=== PATIENT | female | born 1990 | race Caucasian/White ===

== ENCOUNTER → 2018-05-10 | Outpatient (CLI) | payer OTHER, BC | LOC: M RAD 12:33 | DX: Z36.89 Encounter for other specified antenatal screening (principal); Z3A.21 21 weeks gestation of pregnancy | CPT/HCPCS: 76811 ==

== ENCOUNTER → 2018-06-15 | Outpatient (REF) | payer BC ==
[2018-06-15 15:43] LABS: URINE TOTAL PROTEIN 14.8 MG/DL (0-12)
[2018-06-15 19:53] LABS: TOTAL VOLUME, URINE 1000 ML
== END ==
LOC: M LAB REF 12:49
DX: Z36.89 Encounter for other specified antenatal screening (principal)
CPT/HCPCS: 81050

== ENCOUNTER → 2018-06-15 | Outpatient (CLI) | payer OTHER, BC ==
[2018-06-15 13:06] LABS: HEMATOCRIT 36.4 % (36.0-47.0); HEMOGLOBIN 12.4 g/dl (12.0-15.5); MEAN CORPUSCULAR HEMOGLOBIN 31.4 pg (27.0-33.0); MEAN CORPUSCULAR HGB CONC 34.1 g/dl (32.0-36.5); MEAN CORPUSCULAR VOLUME 92.2 fl (80.0-96.0); PLATELET COUNT, AUTOMATED 193 10^3/uL (150-450); RED BLOOD COUNT 3.95 10^6/uL (4.00-5.40); RED CELL DISTRIBUTION WIDTH 12.4 % (11.5-14.5); WHITE BLOOD COUNT 9.8 10^3/uL (4.0-10.0)
[2018-06-15 14:25] LABS: GLUCOSE CHALLENGE TEST 1 HOUR 78 MG/DL (LESS THAN 140)
== END ==
LOC: M LAB 12:09
DX: Z36.89 Encounter for other specified antenatal screening (principal)
CPT/HCPCS: 82950

== ENCOUNTER → 2018-08-26 | Outpatient (REF) | payer BC | LOC: M LAB REF 13:37 | PROVIDERS: ATTEND Obstetrics & Gynecology | DX: Z34.83 Encounter for supervision of other normal pregnancy, third trimester (principal); Z3A.00 Weeks of gestation of pregnancy not specified ==

== ENCOUNTER 2018-09-15 18:04 | Inpatient (IN) | payer OTHER ==
[2018-09-15] VITALS (21 sets, daily range): BP systolic 96–138; BP diastolic 53–82
[~2018-09-15] VITALS: Ht 160 cm; Wt 92.0 kg
[2018-09-15] MEDS ORDERED: LR 1,000 ML IV SCH (18:15)
[2018-09-15] MEDS ORDERED: LACTATED RINGER'S 1000 ML IV STA (18:15)
[2018-09-15] MEDS ORDERED: ANTA1CHW4 PO (18:29)
[2018-09-15] MEDS ORDERED: PRENTAB55 PO (18:29)
[2018-09-15 19:16] LABS: HEMATOCRIT 38.6 % (36.0-47.0); MEAN CORPUSCULAR HEMOGLOBIN 30.4 pg (27.0-33.0); MEAN CORPUSCULAR HGB CONC 33.7 g/dl (32.0-36.5); MEAN CORPUSCULAR VOLUME 90.4 fl (80.0-96.0); PLATELET COUNT, AUTOMATED 151 10^3/uL (150-450); RED BLOOD COUNT 4.27 10^6/uL (4.00-5.40); WHITE BLOOD COUNT 9.9 10^3/uL (4.0-10.0)
[2018-09-15] MEDS ORDERED: OXYTOCIN DRIP 30 UNITS in APPROPRIATE DILUENT 1 EA IV SCH ×2 (19:45→22:47)
[2018-09-15] MEDS ORDERED: FENTANYL 2MCG/ML ROPIVACAINE 0.2% IN 0.9% NACL 100ML IVBAG As Ordered ONE (21:06)
[2018-09-15] MEDS ORDERED: ePHEDrine SULFATE 25 MG/5 ML(5MG/ML) SYRINGE IV PRN (22:00)
[2018-09-15] MEDS ORDERED: ONDANSETRON 4MG/2ML VIAL (J2405) IV PRN (22:00)
[2018-09-15] MEDS ORDERED: NALOXONE INJ 0.4 MG/1 ML VIAL (J2310) IV PRN (22:00)
[2018-09-15] MEDS ORDERED: LACTATED RINGER'S 1000 ML IV PRN (22:00)
[2018-09-15] MEDS ORDERED: REFRIGERATOR IV KEYS XX PRN (22:00)
[2018-09-15] MEDS ORDERED: FENTANYL/ROPIVACAINE/NACL BAG 100 ML EPIDURAL SCH (22:00)
[2018-09-15] MEDS ORDERED: diphenhydrAMINE INJ 50MG/ML VIAL (J1200) IV PRN (22:00)
[2018-09-15] MEDS ORDERED: EPIDURAL/PCA KEYS XX PRN (22:00)
[2018-09-15] MEDS ORDERED: EPIDURAL COMMENT XX SCH (22:00)
[2018-09-15 22:59] LABS: CORD GAS ABE V 2.2; CORD GAS O2 SAT V 57.5 %; CORD GAS PH V 7.309 UNITS; CORD GAS PO2 V 24.7 mmHg; CORD GAS SBC V 25.4 MEQ/L; CORD GAS TCO2 V 31.8 MEQ/L
[2018-09-15 23:00] LABS: CORD GAS ABE A 0.2; CORD GAS HCO3 A 25.1 MEQ/L; CORD GAS O2 SAT A 77.5 %; CORD GAS PCO2 A 41.6 mmHg; CORD GAS PH A 7.399 UNITS; CORD GAS PO2 A 32.8 mmHg; CORD GAS SBC A 24.2 MEQ/L; CORD GAS TCO2 A 26.4 MEQ/L
[2018-09-15] MEDS ORDERED: DIBUCAINE 1% OINTMENT 30GM TOP PRN (23:00)
[2018-09-15] MEDS ORDERED: METHYLERGONOVINE MALEATE 0.2 MG TAB PO PRN (23:00)
[2018-09-15] MEDS ORDERED: DOCUSATE SODIUM 100 MG CAP PO PRN (23:00)
[2018-09-15] MEDS ORDERED: ACETAMINOPHEN 500 MG TAB PO PRN (23:00)
[2018-09-15] MEDS ORDERED: MEASLES,MUMPS,RUBELLA VACCINE INJ (MMR-II) (90707) SC SCH (23:00)
[2018-09-15] MEDS ORDERED: RHOGAM 300 MCG (1500 IU) INJ (J2790) IM SCH (23:00)
[2018-09-15] MEDS ORDERED: IBUPROFEN 800 MG TAB PO PRN (23:00)
--- NOTE | 2018-09-15 23:23 | HPE ---
DATE OF ADMISSION: 09/15/2018 Dewayne is a 28-year-old female 6, para 3-0-2-3 with an estimated date of delivery (EDC) of 09/18/2018, estimated gestational age (EGA) 39-4/7 weeks gestation who presented to the office complaints of contractions. During evaluation she was found to be in active labor. At this point a decision was made for admission. Her record reviewed which was essentially unremarkable. She initiated care at approximately 9 weeks 3 days. Her lab blood type is A+, rubella immune, hepatitis negative, HIV negative, GC chlamydia negative, 1-hour sugar testing was within normal limits. Her GBS is negative. The patient had two prior pregnancies that were complicated with gestational hypertension. Her largest baby was 8 pounds 13 ounces, the smallest was 7 pounds 11 ounces. She has three normal vaginal deliveries. PAST MEDICAL HISTORY: Significant for migraine. PAST SURGICAL HISTORY: Lasik surgery in 2016. SOCIAL HISTORY: She is . Denies any alcohol, drugs or cigarette smoking. REVIEW OF SYSTEMS: Unremarkable. FAMILY HISTORY: Significant for heart disease and leukemia. MEDICATIONS: vitamins. ALLERGIES: No known drug allergies. PHYSICAL EXAMINATION Normal-appearing obese female in no acute distress. Abdomen: Soft, nontender, nondistended. Extremities: No clubbing, cyanosis or edema. Vaginal examination: 4-5 cm dilated, 90% effaced, fetus at -2 station with bulging membranes. Tracing: Category one with contractions every 2-3 minutes. ASSESSMENT Intrauterine at 39-4/7 weeks gestation in labor. GBS negative. PLAN Admit to labor and delivery. Routine labs sent. Pain management discussed. The patient opted for an epidural. Will continue to monitor. Anticipate delivery.
[2018-09-16 06:57] VITALS: BP 132/74
[2018-09-16] MEDS ORDERED: PRENATAL VITAMINS CHEWABLE TABLET PO SCH (09:00)
[2018-09-16] MEDS ORDERED: PRENTAB9 PO (15:21)
[2018-09-16] MEDS ORDERED: MAPA500T2 PO (15:22)
[2018-09-16] MEDS ORDERED: IBUP-1114 PO (15:23)
[2018-09-16] MEDS ORDERED: COLA100C5 PO (15:25)
--- NOTE | 2018-09-16 15:51 | DN ---
DATE: 09/15/2018 Dewayne is a 28-year-old female, 6, para 3-0-2-3, who was admitted at 39-4/7 weeks gestation in labor. She progressed to fully dilated. After artificial rupture of membrane, pushed and delivered a live female in left occiput anterior position over an intact perineum. scores 8 and 9. weight 7 pounds 9 ounces. Placenta delivered spontaneously intact. Three-vessel cord. Perineum, vagina, cervix inspected. No laceration noted. Estimated blood loss 200 mL. Both mother and baby in stable condition.
[2018-09-16 16:00] VITALS: BP 120/78
[2018-09-16 18:00] VITALS: BP 119/76
== END 2018-09-16 23:42 | disposition home or self-care (01) | DRG 807 ==
LOC: M LDI 18:04 → M OBS 09-16 00:41 → M LDI 09-16 02:17 → M OBS 09-16 16:00
PROVIDERS: ADMIT Obstetrics & Gynecology; ATTEND Obstetrics & Gynecology
PROC: 10E0XZZ Delivery of Products of Conception, External Approach (ICD-10-PCS; principal; 2018-09-15)
PROC: 10907ZC Drainage of Amniotic Fluid, Therapeutic from Products of Conception, Via Natural or Artificial Opening (ICD-10-PCS; 2018-09-15)
DX: O80 Encounter for full-term uncomplicated delivery (principal); Z37.0 Single live birth; Z3A.39 39 weeks gestation of pregnancy

== ENCOUNTER → 2022-05-02 | Outpatient (REF) | payer OTHER ==
[~2022-05-02] MED LIST: ANTA1CHW4 PO; COLA100C5 PO; IBUP-1114 PO; MAPA500T2 PO; PRENTAB55 PO; PRENTAB9 PO
== END ==
LOC: M LAB REF 19:34
PROVIDERS: ATTEND Physician Assistant Medical
DX: J02.9 Acute pharyngitis, unspecified (principal)

== ENCOUNTER 2024-02-17 08:17 | Day surgery (SDC) | payer OTHER ==
[~2024-02-17] VITALS: Ht 160 cm; Wt 71.6 kg
[~2024-02-17 08:17] MED LIST changes: +AMPH1CAP16 PO; +DULA3PEN; +REST0.05 OD; +RIME75TA; +TOPI-21 PO; +ZOLO100T PO
[2024-02-17] MEDS ORDERED: NOXI1TAB PO (08:38)
[2024-02-17] MEDS ORDERED: BACTDSTA PO (08:38)
[2024-02-17] MEDS ORDERED: MIDAZOLAM INJ 2MG/2ML VIAL As Ordered ONE (08:45)
[2024-02-17] MEDS ORDERED: fentaNYL 100 MCG/2 ML INJECTION As Ordered ONE (08:45)
[2024-02-17] MEDS ORDERED: propofoL 200 MG/20 ML VIAL As Ordered ONE (08:47)
[2024-02-17] MEDS ORDERED: LIDOCAINE 2% 100MG/5ML SDV (FOR ANES.) As Ordered ONE (08:47)
[2024-02-17] MEDS ORDERED: ACETAMINOPHEN 1000MG 100ML IV BAG As Ordered ONE (08:53)
[2024-02-17] MEDS ORDERED: LR 1,000 ML IV SCH ×2 (09:10→11:10)
[2024-02-17] MEDS: ceFAZolin SOD 2 GM in IV 1 EA IV ONE (09:20)
[2024-02-17] MEDS ORDERED: ONDANSETRON 4MG 2ML VIAL As Ordered ONE (09:36)
[2024-02-17] MEDS ORDERED: KETOROLAC 60MG 2ML VIAL As Ordered ONE (09:36)
[2024-02-17] MEDS: LIDOCAINE W/EPINEPHRINE 1% 20ML VIAL As Ordered ONE (09:40)
[2024-02-17] MEDS ORDERED: HYDROmorphone HCL 2MG/ML 1ML VIAL As Ordered ONE (10:41)
[2024-02-17] MEDS ORDERED: HYDROMORPHONE HCL 0.5 MG/ 0.5 ML SYRINGE IV PRN (11:10)
[2024-02-17] MEDS: fentaNYL 100 MCG/2 ML INJECTION IV PRN (11:21)
[2024-02-17] MEDS: oxyCODONE 5MG TAB PO PRN (11:22)
[2024-02-17] MEDS: ONDANSETRON 4MG 2ML VIAL IV PRN (11:22)
[2024-02-17] MEDS ORDERED: HYDR-3713 PO (11:25)
[2024-02-17 12:45] VITALS: BP 103/61; TEMP 97.7; O2SAT 99
== END 2024-02-17 13:20 | disposition home or self-care (01) ==
LOC: M SDC 08:17
PROVIDERS: ATTEND Urology
DX: N39.3 Stress incontinence (female) (male) (principal); N81.10 Cystocele, unspecified; G43.909 Migraine, unspecified, not intractable, without status migrainosus; F41.9 Anxiety disorder, unspecified; Z79.899 Other long term (current) drug therapy; F17.290 Nicotine dependence, other tobacco product, uncomplicated
CPT/HCPCS: 57240; 57288; 81025; 88302; C1771; J0131; J0690; J1100; J1170; J1885; J2250; J2405; J3010

== ENCOUNTER 2024-02-19 01:57 | Emergency (ER) | payer OTHER ==
[~2024-02-19] VITALS: Ht 160 cm; Wt 73.2 kg
[~2024-02-19 01:57] MED LIST changes: +BACTDSTA PO; +HYDR-3713 PO; +NOXI1TAB PO
[2024-02-19 01:58] VITALS: TEMP 97
[2024-02-19 03:27] VITALS: O2SAT 96
[2024-02-19 03:30] VITALS: BP 105/60
== END 2024-02-19 03:41 | disposition home or self-care (01) ==
LOC: M ED 01:57
DX: N99.89 Other postprocedural complications and disorders of genitourinary system (principal); F10.10 Alcohol abuse, uncomplicated; Z79.1 Long term (current) use of non-steroidal anti-inflammatories (NSAID); Z79.810 Long term (current) use of selective estrogen receptor modulators (SERMs); Z79.899 Other long term (current) drug therapy

== ENCOUNTER → 2024-02-25 | Outpatient (CLI) | payer OTHER ==
[2024-02-25 11:38] LABS: HEMATOCRIT 30.3 % (36.0-47.0); HEMOGLOBIN 10.1 g/dl (12.0-15.5); MEAN CORPUSCULAR HEMOGLOBIN 31.7 pg (27.0-33.0); MEAN CORPUSCULAR HGB CONC 33.3 g/dl (32.0-36.5); PLATELET COUNT, AUTOMATED 309 10^3/uL (150-450); RED BLOOD COUNT 3.19 10^6/uL (4.00-5.40); WHITE BLOOD COUNT 5.5 10^3/uL (4.0-10.0)
[2024-02-25 12:04] LABS: ALBUMIN 3.4 G/DL (3.2-5.2); ALKALINE PHOSPHATASE 62 U/L (46-116); ALT/SGPT 16 U/L (7.0-40); AST/SGOT 9 U/L (<34); BILIRUBIN,TOTAL 0.4 MG/DL (0.3-1.2); BLOOD UREA NITROGEN 14 MG/DL (9-23); CALCIUM LEVEL 9.1 MG/DL (8.5-10.1); CARBON DIOXIDE LEVEL 25 MMOL/L (20-31); CHLORIDE LEVEL 108 MMOL/L (98-107); CREATININE FOR GFR 0.74 MG/DL (0.55-1.30); GLOMERULAR FILTRATION RATE > 60.0 (>60); GLUCOSE, FASTING 88 MG/DL (60-100); POTASSIUM SERUM 4.2 MMOL/L (3.5-5.1); SODIUM LEVEL 138 MMOL/L (136-145); TOTAL PROTEIN 6.8 G/DL (5.7-8.2)
== END ==
LOC: M LAB 10:54
PROVIDERS: ATTEND Urology
DX: N99.89 Other postprocedural complications and disorders of genitourinary system (principal)

== ENCOUNTER → 2024-03-03 | Outpatient (REF) | payer OTHER ==
[2024-03-03 10:51] LABS: APPEARANCE, URINE HAZY (CLEAR); BACTERIA, URINE AUTO NEGATIVE (NEGATIVE); BILIRUBIN, URINE AUTO NEGATIVE (NEGATIVE); BLOOD, URINE BLOOD 1+ (NEGATIVE); COLOR, URINE AMBER (YELLOW); GLUCOSE, URINE (UA) AUTO NEGATIVE (NEGATIVE); KETONE, URINE AUTO NEGATIVE (NEGATIVE); LEUKOCYTE ESTERASE, URINE AUTO 3+ (NEGATIVE); MUCUS, URINE SMALL (NEGATIVE); NITRITE, URINE AUTO NEGATIVE (NEGATIVE); PROTEIN, URINE AUTO NEGATIVE (NEGATIVE); RBC, URINE AUTO 5 /HPF (0-3); SPECIFIC GRAVITY URINE AUTO 1.015 (1.002-1.035); SQUAMOUS EPITHELIAL CELL UR AU 2 /HPF (0-6); UROBILINOGEN, URINE AUTO 0.2 mg/dL (0.0-2.0); WBC, URINE AUTO 23 /HPF (0-3)
== END ==
LOC: M LABSMT 08:23
PROVIDERS: ATTEND Urology
DX: R39.198 Other difficulties with micturition (principal)

== ENCOUNTER → 2024-05-08 | Outpatient (REF) | payer OTHER ==
[2024-05-08 11:18] LABS: APPEARANCE, URINE HAZY (CLEAR); BACTERIA, URINE AUTO NEGATIVE (NEGATIVE); BILIRUBIN, URINE AUTO NEGATIVE (NEGATIVE); BLOOD, URINE BLOOD 3+ (NEGATIVE); CALCIUM OXALATE CRYSTALS SMALL; COLOR, URINE AMBER (YELLOW); GLUCOSE, URINE (UA) AUTO NEGATIVE (NEGATIVE); KETONE, URINE AUTO TRACE mg/dL (NEGATIVE); LEUKOCYTE ESTERASE, URINE AUTO TRACE (NEGATIVE); MUCUS, URINE LARGE (NEGATIVE); NITRITE, URINE AUTO NEGATIVE (NEGATIVE); PROTEIN, URINE AUTO NEGATIVE (NEGATIVE); RBC, URINE AUTO 74 /HPF (0-3); SPECIFIC GRAVITY URINE AUTO 1.027 (1.002-1.035); SQUAMOUS EPITHELIAL CELL UR AU 3 /HPF (0-6); UROBILINOGEN, URINE AUTO 0.2 mg/dL (0.0-2.0); WBC, URINE AUTO 2 /HPF (0-3)
== END ==
LOC: M SFHCWAGY 10:08
PROVIDERS: ATTEND Urology
DX: R39.198 Other difficulties with micturition (principal)